=== PATIENT | male | born 1970 ===

== ENCOUNTER 2018-02-10 15:06 | Emergency (ER) | payer MEDICARE, MEDICAID ==
[2018-02-10] MEDS ORDERED: Sodium Chloride 0.9% 1,000 ML IV STA (15:25)
--- NOTE | 2018-02-10 15:30 | ED PDOC ---
HPI: CCC, URI, Sore Throat Time Seen by Provider: 02/10/18 15:14 Chief Complaint (Nursing): Headache Chief Complaint (Provider): cough, congestion and runny nose History Per: Patient History/Exam Limitations: no limitations Onset/Duration Of Symptoms: Days (x4) Current Symptoms Are (Timing): Still Present Location Of Pain: Headache Associated Symptoms: Cough, Nasal Congestion, Nausea. denies: Fever, Chills, Vomiting, Diarrhea Additional Complaint(s): Ramirez Melvin is a 47 year old male, with a past medical history of glaucoma, who presents to the emergency department complaining of cough, congestion, runny nose and body aches onset for x4 days associated with a headache, lightheadedness and nausea that started this morning. Patient states headache feels similar to previous times he's had a cold and further states it's not the worst headache of his life. He did not take any medications for symptoms. He denies any fever, chills, vomiting, diarrhea, chest pain, shortness of breath, abdominal pain, weakness, numbness or tingling, neck pain, falls or injuries. No further medical complaints. PMD: Dr. Dandy Bey Past Medical History Reviewed: Historical Data, Nursing Documentation, Vital Signs Vital Signs: Last Vital Signs Temp 98.1 F 02/10/18 15:09 Pulse 104 H 02/10/18 15:09 Resp 20 02/10/18 15:09 BP 152/107 H 02/10/18 15:09 Pulse Ox 98 02/10/18 15:09 - Medical History Other PMH: Glaucoma - Surgical History Surgical History: No Surg Hx - Family History Family History: States: Unknown Family Hx - Allergies Allergies/Adverse Reactions: Allergies Allergy/AdvReac Type Severity Reaction Status Date / Time No Known Allergies Allergy Verified 02/10/18 15:09 Review of Systems ROS Statement: Except As Marked, All Systems Reviewed And Found Negative Constitutional: Positive for: Other (body aches). Negative for: Fever, Chills ENT: Positive for: Nose Discharge (runny nose), Nose Congestion Cardiovascular: Negative for: Chest Pain Respiratory: Positive for: Cough. Negative for: Shortness of Breath Gastrointestinal: Positive for: Nausea. Negative for: Vomiting, Abdominal Pain, Diarrhea Musculoskeletal: Negative for: Neck Pain Neurological: Positive for: Headache, Dizziness (lightheadedness). Negative for: Weakness, Numbness (tingling) Physical Exam - Reviewed Nursing Documentation Reviewed: Yes Vital Signs Reviewed: Yes - Physical Exam Appears: Positive for: No Acute Distress Head Exam: Positive for: ATRAUMATIC, NORMAL INSPECTION, NORMOCEPHALIC Skin: Positive for: Normal Color, Warm, Dry Eye Exam: Positive for: Other (Right eye w/ cataract. Left eye reactive to light. Both eyes with limited movement due to chronic condition) ENT: Positive for: Normal ENT Inspection Neck: Positive for: Normal, Painless ROM, Supple Cardiovascular/Chest: Positive for: Regular Rate, Rhythm. Negative for: Murmur Respiratory: Positive for: Normal Breath Sounds. Negative for: Respiratory Distress Gastrointestinal/Abdominal: Positive for: Normal Exam, Soft. Negative for: Tenderness, Guarding, Rebound Back: Positive for: Normal Inspection. Negative for: L CVA Tenderness, R CVA Tenderness, Vertebral Tenderness Extremity: Positive for: Normal ROM (upper and lower extremities). Negative for: Deformity, Swelling Neurologic/Psych: Positive for: Alert, Oriented, Gait (steady). Negative for: Motor/Sensory Deficits, Aphasia, Facial Droop - ECG O2 Sat by Pulse Oximetry: 98 (RA) Pulse Ox Interpretation: Normal - CT Scan/US ct Other Rad Studies (CT/US): Read By Radiologist Other Rad Interpretation: no acute - Progress ED Course And Treament: 1750: Stable. Feels better. AAOx3. Pain free. URI and headaches likely with the uri symptoms. Fu with pcp. Medical Decision Making Medical Decision Making: Time: 15:14 Initial Impression: Flu-like symptoms Initial Plan: --Head w/o contrast [CT] --Sodium Chloride 1,000 ml IV 1,000 mls/hr --Reglan 10 mg IV --Tylenol 325 mg tab 650 mg PO --Reevaluation Scribe Attestation: Documented by Garrett Baer, acting as a scribe for Jose Garg MD. Provider Scribe Attestation: All medical record entries made by the Scribe were at my direction and personally dictated by me. I have reviewed the chart and agree that the record accurately reflects my personal performance of the history, physical exam, medical decision making, and the department course for this patient. I have also personally directed, reviewed, and agree with the discharge instructions and disposition. Disposition - Clinical Impression Clinical Impression: URI (upper respiratory infection) - Patient ED Disposition Is Patient to be Admitted: No - Disposition Referrals: Dandy Bey MD [Primary Care Provider] - 02/11/18 Disposition: Routine/Home Disposition Time: 17:51 Condition: STABLE Additional Instructions: Return if not better in 3 days. Instructions: Viral Upper Respiratory Infection, Adult (DC) - Pt Status Changed To: Hospital Disposition Of: [facility] Extended Stay Bed
--- NOTE | 2018-02-10 16:52 | CT ---
Date of service: 02/10/2018 PROCEDURE: CT HEAD WITHOUT CONTRAST. HISTORY: headache COMPARISON: None available. TECHNIQUE: Axial computed tomography images were obtained through the head/brain without intravenous contrast. Radiation dose: Total exam DLP = 886.31 mGy-cm. This CT exam was performed using one or more of the following dose reduction techniques: Automated exposure control, adjustment of the mA and/or kV according to patient size, and/or use of iterative reconstruction technique. FINDINGS: HEMORRHAGE: No intracranial hemorrhage. BRAIN: No mass effect or edema. No atrophy or chronic microvascular ischemic changes. Nonspecific symmetric basal ganglia calcifications. VENTRICLES: Unremarkable. No hydrocephalus. CALVARIUM: Unremarkable. PARANASAL SINUSES: Unremarkable as visualized. No significant inflammatory changes. MASTOID AIR CELLS: Unremarkable as visualized. No inflammatory changes. OTHER FINDINGS: Postsurgical changes involving the left eye. IMPRESSION: No acute intracranial pathology. Nonspecific symmetric basal ganglia calcifications.
[2018-02-10 18:30] VITALS: BP 147/89; PULSE 88; TEMP 97.8; O2SAT 99
[2018-02-10 18:41] VITALS: RESP 16
== END 2018-02-10 18:28 | disposition home or self-care (01) ==
LOC: H.ER 15:06
DX: J06.9 Acute upper respiratory infection, unspecified (principal)
CPT/HCPCS: 70450; 96361; 96374; 99285; J2765; J7030